=== PATIENT | male | born 1985 | race Caucasian/White ===

== ENCOUNTER → 2016-07-31 | Outpatient (CLI) | payer MEDICAID ==
[2016-07-31 18:17] LABS: ALBUMIN 3.8 GM/DL (3.2-5.2); ALBUMIN/GLOBULIN RATIO 1.36 (1.00-1.93); ALKALINE PHOSPHATASE 67 U/L (45-117); ALT/SGPT 20 U/L (12-78); ANION GAP 7 MEQ/L (8-16); AST/SGOT 9 U/L (15-37); BILIRUBIN,TOTAL 0.6 MG/DL (0.2-1.0); BLOOD UREA NITROGEN 9 MG/DL (7-18); CALCIUM LEVEL 8.4 MG/DL (8.5-10.1); CARBON DIOXIDE LEVEL 30 MEQ/L (21-32); CHLORIDE LEVEL 107 MEQ/L (98-107); CREATININE FOR GFR 0.98 MG/DL (0.70-1.30); GLOMERULAR FILTRATION RATE > 60.0 (>60); GLUCOSE, FASTING 83 MG/DL (70-105); POTASSIUM SERUM 4.1 MEQ/L (3.5-5.1); SODIUM LEVEL 144 MEQ/L (136-145); TOTAL PROTEIN 6.6 GM/DL (6.4-8.2)
[2016-07-31 19:27] LABS: MEAN CORPUSCULAR HEMOGLOBIN 31.5 pg (27.0-33.0); MEAN CORPUSCULAR HGB CONC 32.6 g/dl (32.0-36.5); MEAN CORPUSCULAR VOLUME 96.4 fl (80.0-96.0); RED CELL DISTRIBUTION WIDTH 13.2 % (11.5-14.5); WHITE BLOOD COUNT 6.7 K/mm3 (4.0-10.0)
== END ==
LOC: M WUC 14:03
PROVIDERS: ATTEND Physician Assistant Medical
DX: F10.20 Alcohol dependence, uncomplicated (principal)

== ENCOUNTER 2018-10-01 03:39 | Inpatient (IN) | payer MEDICAID, OTHER ==
[~2018-10-01] VITALS: Ht 182.9 cm; Wt 67.9 kg
[2018-10-01 04:08] LABS: HEMATOCRIT 51.4 % (42.0-52.0); HEMOGLOBIN 17.5 g/dl (13.5-17.5); MEAN CORPUSCULAR HEMOGLOBIN 32.2 pg (27.0-33.0); MEAN CORPUSCULAR VOLUME 94.5 fl (80.0-96.0); PLATELET COUNT, AUTOMATED 213 10^3/uL (150-450); RED BLOOD COUNT 5.44 10^6/uL (4.30-6.10); WHITE BLOOD COUNT 9.6 10^3/uL (4.0-10.0)
[2018-10-01 04:33] LABS: AMPHETAMINES LEVEL URINE NEGATIVE (NEGATIVE); BARBITURATES URINE NEGATIVE (NEGATIVE); BENZODIAZEPINES URINE NEGATIVE (NEGATIVE); CANNABINOIDS URINE POSITIVE (NEGATIVE); COCAINE METABOLITE URINE POSITIVE (NEGATIVE); METHADONE URINE NEGATIVE (NEGATIVE); OPIATES URINE NEGATIVE (NEGATIVE); PHENCYCLIDINE URINE NEGATIVE (NEGATIVE)
[2018-10-01 05:00] LABS: ACETAMINOPHEN LEVEL < 2.0 UG/ML (10.0-30.0); ALT/SGPT 22 U/L (12-78); BILIRUBIN,DIRECT 0.1 MG/DL (0.0-0.2); BILIRUBIN,TOTAL 0.3 MG/DL (0.2-1.0); BLOOD UREA NITROGEN 11 MG/DL (7-18); CALCIUM LEVEL 8.6 MG/DL (8.5-10.1); CARBON DIOXIDE LEVEL 25 MEQ/L (21-32); CHLORIDE LEVEL 111 MEQ/L (98-107); CREATININE FOR GFR 0.92 MG/DL (0.70-1.30); ETHYL ALCOHOL (ETHANOL) 0.124 % (0.000-0.010); GLOMERULAR FILTRATION RATE > 60.0 (>60); GLUCOSE, FASTING 93 MG/DL (70-100); SALICYLATE LEVEL 3.7 MG/DL (5.0-30.0); SODIUM LEVEL 142 MEQ/L (136-145); TOTAL PROTEIN 7.6 GM/DL (6.4-8.2)
[2018-10-01] MEDS ORDERED: IBUPROFEN 600 MG TAB PO ONE (20:00)
[2018-10-01] MEDS ORDERED: NICOTINE 21MG/24HR 1 EA TRANSDERMAL TD ONE (20:45)
[2018-10-02] MEDS ORDERED: OLANZapine ORAL DISINTEGRATING TAB 5MG PO PRN ×2 (16:15→16:30)
[2018-10-02] MEDS ORDERED: MOM 30ML SUSPENSION UDC PO PRN ×2 (16:15→16:30)
[2018-10-02] MEDS ORDERED: traZODone 50 MG TAB PO PRN ×2 (16:15→16:30)
[2018-10-02] MEDS ORDERED: ACETAMINOPHEN TAB 650MG DOSE (2X325MG) PO PRN ×2 (16:15→16:30)
[2018-10-02] MEDS: CLINDAMYCIN TOP 1% SOLN 60 ML BTL TOP SCH (21:00)
--- NOTE | 2018-10-02 23:22 | HPEPDOC ---
General Date of Admission Oct 02, 2018 at 16:06 Date of Service: Oct 02, 2018 Attending Physician: AUDIE RHODES MD Chief Complaint The patient is a 32-year-old male admitted with a reason for visit of E. History of Present Illness Roc Avalos is a 32 year old male, past medical history significant for polysubstance abuse, nicotine dependence, alcohol abuse, who made suicidal statements to family members while drunk. Patient states he called his mother and told her he was going to hurt himself. On assessment, he denies any such feelings currently or thoughts. He complains of pain to his nose with erythema and swelling for the past 3-4 days. He denies chills, fever, denies chest pain, shortness of breath. Home Medications No Active Prescriptions or Reported Meds Allergies Coded Allergies: No Known Allergies (Unverified , 10/01/18) Past Medical History Medical History Nicotine dependence Alcohol abuse Polysubstance abuse Surgical History Left hand surgery for boxer fracture Family History Sibling with ovarian cancer Social History * Smoker: current smoker, less than 1 pack/day Alcohol: heavy Drugs: cocaine, marijuana A-FIB/CHADSVASC A-FIB History Current/History of A-Fib/PAF?: No Current PO Anticoag Therapy: No Review of Systems Other systems A 10 point pertinent review of systems was completed, negative except as stated in the history of presenting illness. Physical Examination Other physical findings GENERAL: NAD SKIN : Warm, dry intact HEENT: Atraumatic, normocephalic, PERRL, erythema, tenderness, swelling to the nasal septum and tip CARDIOVASCULAR: Regular rate and rhythm, S1S2, no JVD, no edema, distal pulses + and palpable RESP: CTAB, no accessory muscle use noted ABDOMEN: BS+ non distended non tender MS: no joint deformities NEURO: Alert and oriented x 3, CN2-12 grossly intact PSYCH: no anxiety or agitation, appropriate mood and affect. Vital Signs Vital Signs Date Time Temp Pulse Resp B/P (MAP) Pulse Ox O2 Delivery O2 Flow Rate FiO2 10/02/18 15:14 97.1 64 18 159/92 (114) 100 Room Air Assessment/Plan Nasal folliculitis -Cleocin topical twice a day -. Pain medication as needed Polysubstance abuse with THC and cocaine -Addiction counseling and management by primary team Suicidal ideation -Assessment and management by primary team Plan / VTE VTE Prophylaxis Ordered?: No VTE Exclusion Mechanical Proph: Low Risk for VTE LOU DOHERTY EDGER LINER Oct 02, 2018 23:22
[2018-10-03 06:49] VITALS: BP 130/90
[2018-10-03] MEDS ORDERED: NICOTINE 14 MG/24 HR TRANSDERMAL TD SCH (09:00)
[2018-10-03] MEDS: CLINDAMYCIN TOP 1% SOLN 60 ML BTL TOP SCH ×2 (09:10→20:56)
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
[2018-10-03] MEDS: NICOTINE 14 MG/24 HR TRANSDERMAL TD SCH (15:33)
[2018-10-03 18:25] VITALS: BP 134/84
[2018-10-04 07:00] VITALS: BP 121/81
[2018-10-04] MEDS: NICOTINE 14 MG/24 HR TRANSDERMAL TD SCH (08:31)
[2018-10-04] MEDS: CLINDAMYCIN TOP 1% SOLN 60 ML BTL TOP SCH (08:33)
[2018-10-04] MEDS ORDERED: NICO14PA TD (10:10)
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
== END 2018-10-04 12:05 | disposition home or self-care (01) | DRG 754 ==
LOC: M ED 03:39 → M ED INP 10-02 16:06 → M PSY 10-02 18:02
PROVIDERS: ADMIT Psychiatry & Neurology Addiction Medicine; ATTEND Psychiatry & Neurology Addiction Medicine
DX: F32.9 Major depressive disorder, single episode, unspecified (principal); R45.851 Suicidal ideations; F10.10 Alcohol abuse, uncomplicated; F19.94 Other psychoactive substance use, unspecified with psychoactive substance-induced mood disorder; F17.200 Nicotine dependence, unspecified, uncomplicated; L73.9 Follicular disorder, unspecified

== ENCOUNTER 2019-08-05 22:33 | Emergency (ER) | payer MEDICAID, OTHER ==
[~2019-08-05] VITALS: Ht 182.9 cm; Wt 160.0 kg
[~2019-08-05 22:33] MED LIST: NICO14PA TD
[2019-08-05] MEDS ORDERED: IBUPROFEN 800 MG TAB PO ONE (23:30)
[2019-08-05] MEDS ORDERED: BOOSTRIX/ADACEL VACCINE (DIPHTH/PERTUSS/ACELL/TETANUS) 0.5ML SYR IM ONE (23:30)
[2019-08-05 23:42] LABS: BASO # 0.1 10^3/uL (0.0-0.2); BASO % 0.5 % (0.0-1.0); EOS # 0.1 10^3/uL (0.0-0.5); EOS % 0.5 % (0.0-3.0); HEMATOCRIT 44.4 % (42.0-52.0); HEMOGLOBIN 14.7 g/dl (13.5-17.5); LYMPH # 2.1 10^3/uL (1.5-5.0); LYMPH % 14.4 % (24.0-44.0); MEAN CORPUSCULAR HGB CONC 33.1 g/dl (32.0-36.5); MEAN CORPUSCULAR VOLUME 93.7 fl (80.0-96.0); MONO % 6.7 % (0.0-5.0); NEUTROPHILS # 11.5 10^3/uL (1.5-8.5); NEUTROPHILS % 77.5 % (36.0-66.0); PLATELET COUNT, AUTOMATED 228 10^3/uL (150-450); RED BLOOD COUNT 4.74 10^6/uL (4.30-6.10); WHITE BLOOD COUNT 14.9 10^3/uL (4.0-10.0)
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
[2019-08-06 00:02] VITALS: BP 126/79
[2019-08-06 00:17] LABS: BLOOD UREA NITROGEN 13 MG/DL (7-18); CALCIUM LEVEL 8.3 MG/DL (8.5-10.1); CARBON DIOXIDE LEVEL 27 MEQ/L (21-32); CHLORIDE LEVEL 106 MEQ/L (98-107); CREATININE FOR GFR 1.12 MG/DL (0.70-1.30); GLOMERULAR FILTRATION RATE > 60.0 (>60); GLUCOSE, FASTING 78 MG/DL (70-100); POTASSIUM SERUM 3.9 MEQ/L (3.5-5.1); SODIUM LEVEL 139 MEQ/L (136-145)
[2019-08-06 00:22] LABS: APPEARANCE, URINE HAZY (CLEAR); BACTERIA, URINE AUTO NEGATIVE (NEGATIVE); BILIRUBIN, URINE AUTO NEGATIVE (NEGATIVE); BLOOD, URINE BLOOD NEGATIVE (NEGATIVE); COLOR, URINE YELLOW (YELLOW); GLUCOSE, URINE (UA) AUTO NEGATIVE (NEGATIVE); KETONE, URINE AUTO NEGATIVE (NEGATIVE); LEUKOCYTE ESTERASE, URINE AUTO NEGATIVE (NEGATIVE); MUCUS, URINE SMALL (NEGATIVE); NITRITE, URINE AUTO NEGATIVE (NEGATIVE); PROTEIN, URINE AUTO NEGATIVE (NEGATIVE); RBC, URINE AUTO 0 /HPF (0-3); SPECIFIC GRAVITY URINE AUTO 1.021 (1.002-1.035); SQUAMOUS EPITHELIAL CELL UR AU 0 /HPF (0-6); WBC, URINE AUTO 0 /HPF (0-3)
== END 2019-08-06 00:52 | disposition home or self-care (01) ==
LOC: M ED 22:33
DX: S80.02XA Contusion of left knee, initial encounter (principal); V86.55XA Driver of 3- or 4- wheeled all-terrain vehicle (ATV) injured in nontraffic accident, initial encounter; Y92.821 Forest as the place of occurrence of the external cause; F17.200 Nicotine dependence, unspecified, uncomplicated; Z87.81 Personal history of (healed) traumatic fracture; Z23 Encounter for immunization

== ENCOUNTER 2020-04-13 21:38 | Emergency (ER) | payer OTHER ==
[~2020-04-13] VITALS: Ht 182.9 cm; Wt 68.1 kg
[2020-04-13 23:07] LABS: HEMATOCRIT 46.1 % (42.0-52.0); HEMOGLOBIN 15.1 g/dl (13.5-17.5); MEAN CORPUSCULAR HEMOGLOBIN 30.3 pg (27.0-33.0); MEAN CORPUSCULAR HGB CONC 32.8 g/dl (32.0-36.5); MEAN CORPUSCULAR VOLUME 92.6 fl (80.0-96.0); PLATELET COUNT, AUTOMATED 232 10^3/uL (150-450); RED BLOOD COUNT 4.98 10^6/uL (4.30-6.10); WHITE BLOOD COUNT 11.6 10^3/uL (4.0-10.0)
[2020-04-13 23:27] LABS: AMPHETAMINES LEVEL URINE POSITIVE (NEGATIVE); BARBITURATES URINE NEGATIVE (NEGATIVE); BENZODIAZEPINES URINE NEGATIVE (NEGATIVE); CANNABINOIDS URINE POSITIVE (NEGATIVE); COCAINE METABOLITE URINE POSITIVE (NEGATIVE); METHADONE URINE NEGATIVE (NEGATIVE); OPIATES URINE NEGATIVE (NEGATIVE); PHENCYCLIDINE URINE NEGATIVE (NEGATIVE)
[2020-04-13 23:38] LABS: ACETAMINOPHEN LEVEL < 2.0 UG/ML (10.0-30.0); ALBUMIN 4.2 GM/DL (3.2-5.2); ALT/SGPT 22 U/L (12-78); BILIRUBIN,DIRECT 0.2 MG/DL (0.0-0.2); BILIRUBIN,TOTAL 0.6 MG/DL (0.2-1.0); BLOOD UREA NITROGEN 13 MG/DL (7-18); CALCIUM LEVEL 9.4 MG/DL (8.5-10.1); CARBON DIOXIDE LEVEL 29 MEQ/L (21-32); CHLORIDE LEVEL 103 MEQ/L (98-107); CREATININE FOR GFR 1.09 MG/DL (0.70-1.30); ETHYL ALCOHOL (ETHANOL) < 0.003 % (0.000-0.010); GLOMERULAR FILTRATION RATE > 60.0 (>60); GLUCOSE, FASTING 128 MG/DL (70-100); POTASSIUM SERUM 3.7 MEQ/L (3.5-5.1); SALICYLATE LEVEL 3.8 MG/DL (5.0-30.0); SODIUM LEVEL 137 MEQ/L (136-145); TOTAL PROTEIN 7.4 GM/DL (6.4-8.2)
[2020-04-14 02:27] VITALS: BP 137/95
== END 2020-04-14 02:38 | disposition home or self-care (01) ==
LOC: M ED 21:38
DX: F19.10 Other psychoactive substance abuse, uncomplicated (principal)
CPT/HCPCS: 36415; 80048; 80076; 80307; 84443; 85027; 99283; G0480

== ENCOUNTER 2020-06-15 16:54 | Emergency (ER) | payer OTHER ==
[~2020-06-15] VITALS: Ht 182.9 cm; Wt 70.2 kg
[2020-06-15 17:27] LABS: HEMATOCRIT 46.3 % (42.0-52.0); HEMOGLOBIN 15.2 g/dl (13.5-17.5); MEAN CORPUSCULAR HEMOGLOBIN 30.9 pg (27.0-33.0); MEAN CORPUSCULAR HGB CONC 32.8 g/dl (32.0-36.5); MEAN CORPUSCULAR VOLUME 94.1 fl (80.0-96.0); PLATELET COUNT, AUTOMATED 251 10^3/uL (150-450); RED BLOOD COUNT 4.92 10^6/uL (4.30-6.10); WHITE BLOOD COUNT 8.7 10^3/uL (4.0-10.0)
[2020-06-15] MEDS ORDERED: NICOTINE 21MG/24HR 1 EA TRANSDERMAL TD ONE (17:30)
[2020-06-15 18:01] LABS: ACETAMINOPHEN LEVEL < 2.0 UG/ML (10.0-30.0); ALBUMIN 3.8 GM/DL (3.2-5.2); ALT/SGPT 20 U/L (12-78); BILIRUBIN,DIRECT 0.1 MG/DL (0.0-0.2); BILIRUBIN,TOTAL 0.3 MG/DL (0.2-1.0); BLOOD UREA NITROGEN 10 MG/DL (7-18); CALCIUM LEVEL 8.6 MG/DL (8.5-10.1); CARBON DIOXIDE LEVEL 26 MEQ/L (21-32); CHLORIDE LEVEL 109 MEQ/L (98-107); CREATININE FOR GFR 0.97 MG/DL (0.70-1.30); ETHYL ALCOHOL (ETHANOL) 0.041 % (0.000-0.010); GLOMERULAR FILTRATION RATE > 60.0 (>60); GLUCOSE, FASTING 109 MG/DL (70-100); POTASSIUM SERUM 4.3 MEQ/L (3.5-5.1); SALICYLATE LEVEL 3.5 MG/DL (5.0-30.0); SODIUM LEVEL 141 MEQ/L (136-145); TOTAL PROTEIN 7.2 GM/DL (6.4-8.2)
[2020-06-15 18:04] LABS: AMPHETAMINES LEVEL URINE NEGATIVE (NEGATIVE); BARBITURATES URINE NEGATIVE (NEGATIVE); BENZODIAZEPINES URINE NEGATIVE (NEGATIVE); CANNABINOIDS URINE POSITIVE (NEGATIVE); COCAINE METABOLITE URINE POSITIVE (NEGATIVE); METHADONE URINE NEGATIVE (NEGATIVE); OPIATES URINE NEGATIVE (NEGATIVE); PHENCYCLIDINE URINE NEGATIVE (NEGATIVE)
[2020-06-15] MEDS ORDERED: ACETAMINOPHEN 325 MG TAB PO ONE (23:35)
[2020-06-16 13:31] LABS: RSV AMPLIFICATION NEGATIVE (NEGATIVE)
[2020-06-16 16:54] VITALS: BP 165/94
--- NOTE | 2020-06-16 19:59 | ECGEPIP ---
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
== END 2020-06-16 16:57 ==
LOC: M ED 16:54
DX: F32.9 Major depressive disorder, single episode, unspecified (principal); F19.10 Other psychoactive substance abuse, uncomplicated; R45.851 Suicidal ideations; R00.1 Bradycardia, unspecified; F17.200 Nicotine dependence, unspecified, uncomplicated

== ENCOUNTER → 2021-12-07 | Outpatient (CLI) | payer MEDICAID, OTHER ==
[2021-12-07 16:23] LABS: APPEARANCE, URINE MANUAL CLEAR (CLEAR); COLOR, URINE MANUAL YELLOW (YELLOW)
[2021-12-07 16:24] LABS: BILIRUBIN, URINE MANUAL NEGATIVE (NEGATIVE); BLOOD URINE MANUAL NEGATIVE (NEGATIVE); GLUCOSE, URINE (UA) MANUAL NEGATIVE (NEGATIVE); KETONE, URINE MANUAL NEGATIVE (NEGATIVE); LEUKOCYTE ESTERASE, URINE MAN NEGATIVE (NEGATIVE); NITRITE, URINE MANUAL NEGATIVE (NEGATIVE); PROTEIN, URINE MANUAL NEGATIVE (NEGATIVE); UROBILINOGEN, URINE MANUAL NORMAL (NORMAL)
[2021-12-07 16:32] LABS: BASO # 0.1 10^3/uL (0.0-0.2); BASO % 0.7 % (0.0-1.0); EOS # 0.2 10^3/uL (0.0-0.5); EOS % 2.2 % (0.0-3.0); HEMATOCRIT 47.6 % (42.0-52.0); HEMOGLOBIN 15.6 g/dl (13.5-17.5); LYMPH # 1.7 10^3/uL (1.5-5.0); LYMPH % 24.3 % (24.0-44.0); MEAN CORPUSCULAR HEMOGLOBIN 29.5 pg (27.0-33.0); MEAN CORPUSCULAR HGB CONC 32.8 g/dl (32.0-36.5); MONO # 0.5 10^3/uL (0.0-0.8); MONO % 7.8 % (2.0-8.0); NEUTROPHILS # 4.5 10^3/uL (1.5-8.5); NEUTROPHILS % 64.4 % (36.0-66.0); PLATELET COUNT, AUTOMATED 203 10^3/uL (150-450); RED BLOOD COUNT 5.29 10^6/uL (4.30-6.10); WHITE BLOOD COUNT 6.9 10^3/uL (4.0-10.0)
[2021-12-07 17:23] LABS: ALBUMIN 4.4 GM/DL (3.2-5.2); BLOOD UREA NITROGEN 13 MG/DL (7-18); CALCIUM LEVEL 10.1 MG/DL (8.5-10.1); CARBON DIOXIDE LEVEL 30 MEQ/L (21-32); CHLORIDE LEVEL 105 MEQ/L (98-107); CREATININE FOR GFR 1.11 MG/DL (0.70-1.30); GLOMERULAR FILTRATION RATE > 60.0 (>60); GLUCOSE, FASTING 98 MG/DL (70-100); PHOSPHORUS LEVEL 4.1 MG/DL (2.5-4.9); POTASSIUM SERUM 4.3 MEQ/L (3.5-5.1); SODIUM LEVEL 139 MEQ/L (136-145)
[2021-12-07 18:19] LABS: HEPATITIS B SURFACE ANTIGEN NEGATIVE (NEGATIVE)
[2021-12-07 18:47] LABS: HEPATITIS B CORE ANTIBODY IGM NEGATIVE (NEGATIVE); HEPATITIS C VIRUS ABY INDEX < 0.0 INDEX (<0.8)
== END ==
LOC: M LAB 15:52
PROVIDERS: ATTEND Physician Assistant
DX: Z02.2 Encounter for examination for admission to residential institution (principal)

== ENCOUNTER 2022-02-12 13:32 | Emergency (ER) | payer MEDICAID, OTHER ==
[~2022-02-12] VITALS: Ht 182.9 cm; Wt 102.2 kg
[2022-02-12 13:32] VITALS: BP 140/81
[~2022-02-12 13:32] MED LIST changes: +IBUP200C28 PO; +REME15TA2 PO; +SERT-141 PO
[2022-02-12] MEDS ORDERED: DOXA1TAB49 (13:37)
[2022-02-12] MEDS ORDERED: TRAZ-252 (13:37)
[2022-02-12] MEDS ORDERED: DULO1CAP6 (13:37)
[2022-02-12] MEDS ORDERED: OMEP40CA5 (13:37)
[2022-02-12] MEDS ORDERED: GABA-282 (13:37)
[2022-02-12] MEDS ORDERED: KETOROLAC 30 MG/ML 1ML VIAL IM ONE (17:40)
[2022-02-12] MEDS ORDERED: LIDOCAINE 5% (LIDODERM) PATCH TD ONE (17:40)
[2022-02-12] MEDS ORDERED: NAPR-837 PO (19:02)
[2022-02-12] MEDS ORDERED: LIDO5DIS41 TD (19:02)
[2022-02-12] MEDS ORDERED: CYCL-707 PO (19:02)
== END 2022-02-12 19:24 | disposition home or self-care (01) ==
LOC: M ED 13:32
DX: M54.12 Radiculopathy, cervical region (principal); W22.8XXA Striking against or struck by other objects, initial encounter; K21.9 Gastro-esophageal reflux disease without esophagitis; F10.10 Alcohol abuse, uncomplicated; F32.A Depression, unspecified; F17.290 Nicotine dependence, other tobacco product, uncomplicated; Z79.899 Other long term (current) drug therapy
CPT/HCPCS: 72125; 96372; 99282; J1885

== ENCOUNTER 2023-11-05 13:28 | Emergency (ER) | payer MEDICAID, OTHER ==
[~2023-11-05] VITALS: Ht 182.9 cm; Wt 78.8 kg
[~2023-11-05 13:28] MED LIST changes: +CYCL-707 PO; +DOXA1TAB49; +DULO1CAP6; +GABA-282; +LIDO5DIS41 TD; +MIRT-84 PO; +NAPR-837 PO; +OMEP40CA5; -REME15TA2 PO; +TRAZ-252
[2023-11-05 13:29] VITALS: TEMP 98
[2023-11-05 15:57] VITALS: BP 122/78; O2SAT 99
[2023-11-05] MEDS: KETOROLAC 30 MG/ML 1ML VIAL IM ONE (15:57)
[2023-11-05] MEDS: ACETAMINOPHEN 500 MG TAB PO ONE (15:57)
[2023-11-05] MEDS ORDERED: MELO7.5T35 PO ×2 (16:01→18:12)
== END 2023-11-05 16:09 | disposition home or self-care (01) ==
LOC: M ED 13:28
DX: R07.89 Other chest pain (principal); Y04.8XXA Assault by other bodily force, initial encounter; F17.200 Nicotine dependence, unspecified, uncomplicated
CPT/HCPCS: 70450; 71046; 96372; 99283; J1885

== ENCOUNTER 2023-12-25 21:53 | Emergency (ER) | payer MEDICAID, OTHER ==
[~2023-12-25 21:53] MED LIST changes: +GABA-1172; -GABA-282; +MELO7.5T35 PO
[2023-12-25 22:31] LABS: HEMATOCRIT 48.2 % (42.0-52.0); HEMOGLOBIN 16.3 g/dl (13.5-17.5); MEAN CORPUSCULAR HEMOGLOBIN 32.3 pg (27.0-33.0); MEAN CORPUSCULAR HGB CONC 33.8 g/dl (32.0-36.5); MEAN CORPUSCULAR VOLUME 95.4 fl (80.0-96.0); PLATELET COUNT, AUTOMATED 236 10^3/uL (150-450); RED BLOOD COUNT 5.05 10^6/uL (4.30-6.10); WHITE BLOOD COUNT 10.1 10^3/uL (4.0-10.0)
[2023-12-25 22:51] LABS: AMPHETAMINES LEVEL URINE NEGATIVE (NEGATIVE); BARBITURATES URINE NEGATIVE (NEGATIVE); BENZODIAZEPINES URINE NEGATIVE (NEGATIVE); CANNABINOIDS URINE POSITIVE (NEGATIVE); COCAINE METABOLITE URINE POSITIVE (NEGATIVE); METHADONE URINE NEGATIVE (NEGATIVE); OPIATES URINE NEGATIVE (NEGATIVE); PHENCYCLIDINE URINE NEGATIVE (NEGATIVE)
[2023-12-25 22:55] LABS: ALBUMIN 4.3 G/DL (3.2-5.2); ALKALINE PHOSPHATASE 79 U/L (46-116); ALT/SGPT 16 U/L (7.0-40); AST/SGOT < 8 U/L (<34); BILIRUBIN,DIRECT 0.1 MG/DL (<0.4); BILIRUBIN,TOTAL 0.3 MG/DL (0.3-1.2); BLOOD UREA NITROGEN 8 MG/DL (9-23); CALCIUM LEVEL 9.7 MG/DL (8.5-10.1); CARBON DIOXIDE LEVEL 26 MMOL/L (20-31); CHLORIDE LEVEL 109 MMOL/L (98-107); CREATININE FOR GFR 0.78 MG/DL (0.70-1.30); GLOMERULAR FILTRATION RATE > 60.0 (>60); GLUCOSE, FASTING 94 MG/DL (60-100); SALICYLATE LEVEL < 3.0 MG/DL (<30); SODIUM LEVEL 141 MMOL/L (136-145); TOTAL PROTEIN 7.4 G/DL (5.7-8.2)
[2023-12-25] MEDS: IBUPROFEN 400MG TAB PO PRN (23:12)
[2023-12-26] MEDS ORDERED: HOME MED LIST COMPLETE! XX SCH (02:25)
[2023-12-26 12:50] VITALS: BP 160/78; TEMP 98.8; O2SAT 99
== END 2023-12-26 13:00 | disposition home or self-care (01) ==
LOC: M ED 21:53
DX: F19.10 Other psychoactive substance abuse, uncomplicated (principal); F32.A Depression, unspecified; F17.200 Nicotine dependence, unspecified, uncomplicated